=== PATIENT | male | born 1950 | race Caucasian/White ===

== ENCOUNTER → 2020-04-02 | Outpatient (CLI) | payer BC, MEDICARE ==
[~2020-04-02] VITALS: Ht 180 cm; Wt 100.0 kg
[~2020-04-02] MED LIST: BAMLANIVIMAB 700 MG in NS 200 ML IV ONE; EPINEPHrine INJECTION 1 MG/ML AMP IM PRN; diphenhydrAMINE 50 MG/ML INJ (BENADRYL) IV PRN
[2020-04-02 13:52] VITALS: BP 151/88
[2020-04-02 14:42] VITALS: BP 154/74
[2020-04-02 15:08] VITALS: BP 124/75
[2020-04-02 16:11] VITALS: BP 135/73
== END ==
LOC: INFUSION 13:38
DX: U07.1 COVID-19 (principal)

== ENCOUNTER 2020-07-18 13:49 | Outpatient (RCR) | payer MEDICARE ==
[2020-08-06] MEDS ORDERED: LEVO25CA4 PO (16:18)
[2020-08-06] MEDS ORDERED: CALC-140 PO (16:18)
[2020-08-06] MEDS ORDERED: PRD10T PO (16:18)
[2020-08-06] MEDS ORDERED: LISI10TA25 PO (16:18)
[2020-08-06] MEDS ORDERED: GABA300C PO (16:18)
[2020-08-06] MEDS ORDERED: CELE200C PO (16:18)
[2020-08-06] MEDS ORDERED: [UNRECOGNIZED DRUG - CODE] SQ (16:18)
[2020-08-06] MEDS ORDERED: TERA10CA3 PO (16:18)
[2020-08-06] MEDS ORDERED: MIRA50TA PO (16:18)
[2020-08-06] MEDS ORDERED: CYAN250010 PO (16:18)
== END 2020-07-22 | disposition home or self-care (01) ==
LOC: ONC 13:49
PROVIDERS: ATTEND Radiology Radiation Oncology
DX: C61 Malignant neoplasm of prostate (principal); I10 Essential (primary) hypertension; F17.210 Nicotine dependence, cigarettes, uncomplicated
CPT/HCPCS: 76873; 99204

== ENCOUNTER 2020-08-14 09:27 | Day surgery (SDC) | payer MEDICARE ==
[~2020-08-14] VITALS: Ht 180.3 cm; Wt 99.6 kg
[2020-08-14] VITALS (10 sets, daily range): BP systolic 131–170; BP diastolic 73–91
[~2020-08-14 09:27] MED LIST changes: -BAMLANIVIMAB 700 MG in NS 200 ML IV ONE; +CALC-140 PO; +CELE200C PO; +CYAN250010 PO; -EPINEPHrine INJECTION 1 MG/ML AMP IM PRN; +GABA300C PO; +LEVO25CA4 PO; +LISI10TA25 PO; +MIRA50TA PO; +PRD10T PO; +TERA10CA3 PO; +[UNRECOGNIZED DRUG - CODE] SQ; -diphenhydrAMINE 50 MG/ML INJ (BENADRYL) IV PRN
[2020-08-14] MEDS ORDERED: ONDANSETRON 4 MG/2 ML (SDV) Z0FRAN ONE (09:50)
[2020-08-14] MEDS ORDERED: SEVOFLURANE (ULTANE) 15 ML INHAL SOLN ONE (09:50)
[2020-08-14] MEDS ORDERED: proPOfol 200 MG/20 ML (DIPRIVAN) VIAL IV ONE (09:50)
[2020-08-14] MEDS ORDERED: MIDAZOLAM 2 MG/2 ML (VERSED) VIAL ONE ×2 (09:50→13:33)
[2020-08-14] MEDS ORDERED: fentaNYL INJ 100 MCG/2 ML AMP ONE ×2 (09:50→13:33)
[2020-08-14] MEDS ORDERED: LIDOCAINE PF 2% 5 ML (XYLOCAINE) VIAL ONE (09:50)
--- NOTE | 2020-08-14 09:50 | Progress Note-Pre Operative ---
Pre-Operative Progress Note H&P Reviewed The H&P was reviewed, patient examined and no changes noted. Date Seen by Provider: August 14, 2020 Time Seen by Provider: 09:49 Date H&P Reviewed: August 14, 2020 Time H&P Reviewed: 09:49 Pre-Operative Diagnosis: Prostate cancer cT2b, PSA 6.5, [place] 9 (4+5) DIMITRI DE LA FUENTE MD August 14, 2020 09:50
--- NOTE | 2020-08-14 09:55 | Discharge Inst-Simple/Standard ---
Discharge Inst-Standard Reconcile Patient Problems Problems Reviewed?: Yes Discharge Medications New, Converted or Re-Newed RX: Other (Called to [facility] 08[facility]20) Patient Instructions/Follow Up Plan of Care/Instructions/FU: 1) One month post implant ct at [facility] 09/10/2020 2) One month follow up with Dr. 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 DIMITRI DE LA FUENTE MD August 14, 2020 09:55
[2020-08-14] MEDS ORDERED: CIPR250S3 PO (09:56)
[2020-08-14] MEDS: LACTATED RINGERS 1,000 ML IV PRN ×2 (09:58→12:10)
[2020-08-14] MEDS ORDERED: BACITRACIN OINTMENT 28 GM TUBE ONE (12:14)
--- NOTE | 2020-08-14 12:38 | Progress Note-Post Operative ---
Post-Operative Progess Note Surgeon (s)/Aeronautical Products Sales Engineer (s) Surgeon DIMITRI DE LA FUENTE MD Aeronautical Products Sales Engineer: Royce SHETH MD Pre-Operative Diagnosis Prostate cancer cT2b, PSA 6.5, [place] 9 (4+5) Post-Operative Diagnosis Same as pre op Procedure & Operative Findings Date of Procedure 08/14/20 Procedure Performed/Findings (1) 67% Cesium 131 permanent prostate seed implant (2) Injection of biodegradable prostate-rectal spacer utilizing the [employer] [place] system (3) Cystogram Prostate volume 41 cc Anesthesia Type General Estimated Blood Loss Estimated blood loss (mL): minimal Specimens/Packing Specimens Removed none Packing: n/a DIMITRI DE LA FUENTE MD August 14, 2020 12:38
[2020-08-14] MEDS ORDERED: morphine INJ 10 MG/ML 1ML (SYR OR VIAL) IVP ONE (12:45)
[2020-08-14] MEDS ORDERED: ONDANSETRON 4 MG/2 ML (SDV) Z0FRAN IVP PRN (12:45)
--- NOTE | 2020-08-14 13:20 | Anesthesia-General Post-Op ---
General Patient Condition Mental Status/LOC: Same as Preop Cardiovascular: Satisfactory Nausea/Vomiting: Absent Respiratory: Satisfactory Pain: Controlled Complications: Absent Post Op Complications Complications None Follow Up Care/Instructions Patient Instructions None needed. Anesthesia/Patient Condition Patient Condition Patient is doing well, no complaints, stable vital signs, no apparent adverse anesthesia problems. GENOVEVA LEMA DO August 14, 2020 13:20
--- NOTE | 2020-08-14 13:35 | Diagnostic Imaging Report ---
INDICATION: Fluoroscopy during brachytherapy. Fluoroscopy was provided for Dr. Escalante during brachytherapy. 10 seconds of fluoroscopic time was utilized. A single image was obtained demonstrate multiple radiation seed implants within the prostate. There is a Garza catheter within the bladder. IMPRESSION: Fluoroscopy during prostate brachytherapy. Dictated by: Dictated on workstation # [id number]
== END 2020-08-14 14:35 | disposition home or self-care (01) ==
LOC: SDC 09:27
PROVIDERS: ATTEND Radiology Radiation Oncology
DX: C61 Malignant neoplasm of prostate (principal); I10 Essential (primary) hypertension; M19.90 Unspecified osteoarthritis, unspecified site; E03.9 Hypothyroidism, unspecified; F17.210 Nicotine dependence, cigarettes, uncomplicated; Z90.89 Acquired absence of other organs; Z79.899 Other long term (current) drug therapy; Z79.890 Hormone replacement therapy
CPT/HCPCS: 55874; 55876; 76000; 76965; 77290; 77318; 77332; 77370; 77470; 77778; 87081; C1715 ×2; C1889; C2643

== ENCOUNTER 2020-11-13 08:38 | Outpatient (RCR) | payer MEDICARE ==
[~2020-11-13 08:38] MED LIST changes: +CIPR250S3 PO
== END 2020-12-11 | disposition home or self-care (01) ==
LOC: ONC 08:38
PROVIDERS: ATTEND Radiology Radiation Oncology
DX: Z51.0 Encounter for antineoplastic radiation therapy (principal); C61 Malignant neoplasm of prostate; I10 Essential (primary) hypertension; F17.210 Nicotine dependence, cigarettes, uncomplicated
CPT/HCPCS: 77290; 77295; 77300; 77301; 77334; 77336; 77338; 77385

== ENCOUNTER 2021-01-02 09:52 | Outpatient (RCR) | payer MEDICARE | END 2021-04-02 | disposition home or self-care (01) | LOC: ONC 09:52 | PROVIDERS: ATTEND Radiology Radiation Oncology | DX: C61 Malignant neoplasm of prostate (principal); I10 Essential (primary) hypertension; E03.9 Hypothyroidism, unspecified | CPT/HCPCS: 99213 ==

== ENCOUNTER → 2021-07-03 | Outpatient (RCR) | payer MEDICARE | LOC: ONC 09:48 | PROVIDERS: ATTEND Radiology Radiation Oncology | DX: C61 Malignant neoplasm of prostate (principal); I10 Essential (primary) hypertension; E03.9 Hypothyroidism, unspecified | CPT/HCPCS: 99213 ==

== ENCOUNTER 2022-01-08 10:28 | Outpatient (RCR) | payer MEDICARE ==
[~2022-01-08 10:28] MED LIST changes: +LEUP22.56 SQ; -[UNRECOGNIZED DRUG - CODE] SQ
== END 2022-02-02 | disposition home or self-care (01) ==
LOC: ONC 10:28
PROVIDERS: ATTEND Radiology Radiation Oncology
DX: C61 Malignant neoplasm of prostate (principal); I10 Essential (primary) hypertension; E03.9 Hypothyroidism, unspecified
CPT/HCPCS: 99212